=== PATIENT | male | born 1990 | race Caucasian/White ===

== ENCOUNTER 2016-07-17 20:34 | Emergency (ER) | payer SELFPAY ==
[2016-07-17 20:46] VITALS: BP 127/92
== END 2016-07-17 22:50 | disposition home or self-care (01) ==
LOC: ED 20:34
DX: S20.229A Contusion of unspecified back wall of thorax, initial encounter (principal); S20.20XA Contusion of thorax, unspecified, initial encounter; M54.5 Low back pain; Y04.2XXA Assault by strike against or bumped into by another person, initial encounter; Y93.89 Activity, other specified; Y92.89 Other specified places as the place of occurrence of the external cause; Y99.8 Other external cause status
CPT/HCPCS: 72072; J1885